=== PATIENT | female | born 1955 | race Caucasian/White ===

== ENCOUNTER 2016-12-09 04:18 | Outpatient (CLI) | payer BC | END 2016-12-09 04:19 | disposition EMS.NT | LOC: EMS 04:18 | PROVIDERS: ATTEND Surgery | DX: M79.671 Pain in right foot (principal); W17.89XA Other fall from one level to another, initial encounter; W20.8XXA Other cause of strike by thrown, projected or falling object, initial encounter; Y92.008 Other place in unspecified non-institutional (private) residence as the place of occurrence of the external cause ==